=== PATIENT | female | born 1950 | race Caucasian/White ===

== ENCOUNTER 2017-10-21 19:36 | Emergency (ER) | payer SELFPAY, OTHER | END 2017-10-22 01:26 | disposition left against medical advice (07) | LOC: E/R 19:36 | DX: Z53.21 Procedure and treatment not carried out due to patient leaving prior to being seen by health care provider (principal) ==

== ENCOUNTER 2017-10-22 05:20 | Inpatient (IN) | payer OTHER ==
[2017-10-22] MEDS ORDERED: morphine 2 MG INJ IV (06:00)
[2017-10-22] MEDS ORDERED: ONDANSETRON 4 MG INJ IV (06:00)
[2017-10-22] MEDS ORDERED: NACL 0.9% 3 ML SYG IV (07:00)
[2017-10-22] MEDS ORDERED: hydrALAzine 20 MG INJ IV (07:00)
[2017-10-22] MEDS: DEXTROSE 5%-0.45% NACL 1,000 ML IV ×2 (07:04→18:37)
[2017-10-22] MEDS: FAMOTIDINE 20 MG INJ IV ×2 (08:18→20:15)
[2017-10-22 08:33] LABS: ADD MAN DIFF? NO
[2017-10-22 08:37] LABS: WHITE BLOOD COUNT 14.1 10^3/ul (4.8-10.8)
[2017-10-22 08:37] LABS: BASOPHILS % 0.1 % (0.0-2.0); EOSINOPHILS % 0.1 % (0.0-7.0); HEMATOCRIT 38.1 % (37.0-47.0); HEMOGLOBIN 12.5 g/dl (12.0-16.0); LYMPHOCYTES # 0.9 10^3/ul (0.8-2.9); LYMPHOCYTES % 6.6 % (15.0-51.0); MEAN CORPUSCULAR HEMOGLOBIN 29.2 pg (29.0-33.0); MEAN CORPUSCULAR HGB CONC 32.8 g/dl (32.0-37.0); MEAN PLATELET VOLUME 11.5 fl (7.4-10.4); MONOCYTE # 0.9 10^3/ul (0.3-0.9); MONOCYTES % 6.4 % (0.0-11.0); NEUTROPHIL # 12.2 10^3/ul (1.6-7.5); NEUTROPHILS % 86.5 % (39.0-77.0); PLATELET COUNT 242 10^3/UL (140-415); RED BLOOD COUNT 4.28 10^6/ul (4.20-5.40); RED CELL DISTRIBUTION WIDTH 13.8 % (11.5-14.5)
[2017-10-22 08:56] LABS: ALANINE AMINOTRANSFERASE 28 IU/L (13-69); ALBUMIN 4.1 g/dl (3.3-4.9); ALBUMIN/GLOBULIN RATIO 1.24; ALKALINE PHOSPHATASE 71 IU/L (42-121); ANION GAP 16 (8-16); ASPARTATE AMINO TRANSFERASE 20 IU/L (15-46); BILIRUBIN,INDIRECT 0.4 mg/dl (0-1.1); BILIRUBIN,TOTAL 0.4 mg/dl (0.2-1.3); BLOOD UREA NITROGEN 16 mg/dl (7-20); CARBON DIOXIDE 30 mmol/L (21-31); CHLORIDE 101 mmol/L (97-110); CREATININE 0.57 mg/dl (0.44-1.00); GLUCOSE 126 mg/dl (70-220); MAGNESIUM 1.8 mg/dl (1.7-2.5); PHOSPHORUS 3.7 mg/dl (2.5-4.9); SODIUM 143 mmol/L (135-144); TOTAL PROTEIN 7.4 g/dl (6.1-8.1)
[2017-10-23] MEDS: DEXTROSE 5%-0.45% NACL 1,000 ML IV ×2 (02:00→05:30)
[2017-10-23 05:15] LABS: ADD MAN DIFF? NO
[2017-10-23 05:16] LABS: WHITE BLOOD COUNT 7.5 10^3/ul (4.8-10.8)
[2017-10-23 05:16] LABS: BASOPHILS % 0.4 % (0.0-2.0); EOSINOPHILS # 0.2 10^3/ul (0.0-0.5); EOSINOPHILS % 3.2 % (0.0-7.0); HEMATOCRIT 32.1 % (37.0-47.0); HEMOGLOBIN 10.6 g/dl (12.0-16.0); LYMPHOCYTES # 1.2 10^3/ul (0.8-2.9); LYMPHOCYTES % 15.6 % (15.0-51.0); MEAN CORPUSCULAR VOLUME 87.7 fl (82.0-101.0); MEAN PLATELET VOLUME 11.2 fl (7.4-10.4); MONOCYTE # 0.7 10^3/ul (0.3-0.9); MONOCYTES % 8.7 % (0.0-11.0); NEUTROPHIL # 5.3 10^3/ul (1.6-7.5); NEUTROPHILS % 71.7 % (39.0-77.0); PLATELET COUNT 204 10^3/UL (140-415); RED BLOOD COUNT 3.66 10^6/ul (4.20-5.40); RED CELL DISTRIBUTION WIDTH 14.3 % (11.5-14.5)
[2017-10-23 05:42] LABS: ANION GAP 15 (8-16); BLOOD UREA NITROGEN 14 mg/dl (7-20); CALCIUM 8.5 mg/dl (8.4-10.2); CARBON DIOXIDE 27 mmol/L (21-31); CHLORIDE 102 mmol/L (97-110); CREATININE 0.68 mg/dl (0.44-1.00); GLUCOSE 141 mg/dl (70-220); MAGNESIUM 1.9 mg/dl (1.7-2.5); PHOSPHORUS 3.1 mg/dl (2.5-4.9); POTASSIUM 3.5 mmol/L (3.5-5.1); SODIUM 140 mmol/L (135-144)
[2017-10-23] MEDS ORDERED: BUPIVACAINE 0.25% (MPF) 30 ML INJ (06:49)
[2017-10-23] MEDS: BUPIVACAINE 0.25% (STERILE-PAK) 30 ML INJ INJ (06:56)
[2017-10-23] MEDS: BUPIVACAINE 0.25%/EPI (SDV) 30 ML INJ INJ (06:56)
[2017-10-23] MEDS ORDERED: EPHEDrine SULFATE 50 MG/5 ML SYG (07:00)
[2017-10-23] MEDS ORDERED: CEFAZOLIN 1 GM INJ (07:00)
[2017-10-23] MEDS ORDERED: SUCCINYLCHOLINE CHLORIDE 100 MG/5 ML SYG IV (07:00)
[2017-10-23] MEDS ORDERED: ROCURONIUM 50 MG INJ (07:21)
[2017-10-23] MEDS ORDERED: FENTAnyl 50 MCG/ML VIAL ×2 (07:21→08:56)
[2017-10-23] MEDS ORDERED: PROPOFOL 20 ML (07:21)
[2017-10-23] MEDS ORDERED: MIDAZOLAM 1 MG/ML 2 ML INJ (07:21)
[2017-10-23] MEDS ORDERED: LIDOCAINE 1% (MDV) 20 ML INJ (07:22)
[2017-10-23] MEDS ORDERED: DEXAMETHASONE 4 MG/ML 1 ML INJ (07:22)
[2017-10-23] MEDS ORDERED: METOCLOPRAMIDE 10 MG INJ (07:25)
[2017-10-23] MEDS ORDERED: FAMOTIDINE 20 MG INJ (07:50)
[2017-10-23] MEDS ORDERED: LIDOCAINE 1%/EPI 30 ML INJ (07:52)
[2017-10-23] MEDS ORDERED: ACETAMINOPHEN 1000MG/100ML IV 100 ML (08:16)
[2017-10-23] MEDS ORDERED: SUGAMMADEX SODIUM 200 MG/2 ML VIAL IV (08:35)
[2017-10-23] MEDS ORDERED: HYDROCODONE/APAP (5/325) TAB PO (09:30)
[2017-10-23] MEDS ORDERED: DOCUSATE SODIUM 100 MG CAP PO (09:30)
[2017-10-23] MEDS ORDERED: BISACODYL 10 MG SUPP PR (09:30)
[2017-10-23] MEDS ORDERED: NA PHOSPHATE/BIPHOS 133 ML ENEMA PR (09:30)
[2017-10-23] MEDS: ONDANSETRON 4 MG INJ IV ×2 (10:03→18:13)
[2017-10-23] MEDS: HYDROmorphONE 0.5 MG/0.5 ML SYG IV ×2 (11:40→15:59)
[2017-10-23] MEDS: HYDROCODONE/APAP (5/325) TAB PO (13:17)
[2017-10-24 05:51] LABS: ADD MAN DIFF? NO
[2017-10-24 05:56] LABS: BASOPHILS % 0.1 % (0.0-2.0); EOSINOPHILS % 0.1 % (0.0-7.0); HEMOGLOBIN 11.5 g/dl (12.0-16.0); LYMPHOCYTES % 10.2 % (15.0-51.0); MEAN CORPUSCULAR HEMOGLOBIN 29.1 pg (29.0-33.0); MEAN CORPUSCULAR HGB CONC 32.9 g/dl (32.0-37.0); MEAN CORPUSCULAR VOLUME 88.6 fl (82.0-101.0); MEAN PLATELET VOLUME 11.5 fl (7.4-10.4); MONOCYTE # 0.5 10^3/ul (0.3-0.9); MONOCYTES % 5.2 % (0.0-11.0); NEUTROPHIL # 8.6 10^3/ul (1.6-7.5); PLATELET COUNT 240 10^3/UL (140-415); RED BLOOD COUNT 3.95 10^6/ul (4.20-5.40); RED CELL DISTRIBUTION WIDTH 13.7 % (11.5-14.5)
[2017-10-24 05:56] LABS: WHITE BLOOD COUNT 10.2 10^3/ul (4.8-10.8)
[2017-10-24 06:30] LABS: LIPASE 56 U/L (23-300)
[2017-10-24 06:38] LABS: ALANINE AMINOTRANSFERASE 67 IU/L (13-69); ALBUMIN/GLOBULIN RATIO 1.29; ALKALINE PHOSPHATASE 69 IU/L (42-121); ANION GAP 15 (8-16); ASPARTATE AMINO TRANSFERASE 72 IU/L (15-46); BILIRUBIN,INDIRECT 0.3 mg/dl (0-1.1); BILIRUBIN,TOTAL 0.3 mg/dl (0.2-1.3); BLOOD UREA NITROGEN 14 mg/dl (7-20); CALCIUM 8.9 mg/dl (8.4-10.2); CARBON DIOXIDE 28 mmol/L (21-31); CHLORIDE 104 mmol/L (97-110); CREATININE 0.68 mg/dl (0.44-1.00); GLUCOSE 104 mg/dl (70-220); POTASSIUM 3.8 mmol/L (3.5-5.1); SODIUM 143 mmol/L (135-144); TOTAL PROTEIN 7.1 g/dl (6.1-8.1)
[2017-10-24] MEDS: HYDROCODONE/APAP (5/325) TAB PO (08:44)
[2017-10-24] MEDS: FAMOTIDINE 20 MG INJ IV (08:44)
[2017-10-24] MEDS: ENOXAPARIN 40 MG/0.4 ML SYG SC (08:45)
[2017-10-25] MEDS ORDERED: DOCUSATE SODIUM 100 MG CAP PO (09:00)
== END 2017-10-24 13:39 | disposition home or self-care (01) | DRG 419 ==
LOC: MS1 05:20
PROC: 0FT44ZZ Resection of Gallbladder, Percutaneous Endoscopic Approach (ICD-10-PCS; principal; 2017-10-23 07:30)
DX: K80.00 Calculus of gallbladder with acute cholecystitis without obstruction (principal); I11.9 Hypertensive heart disease without heart failure; K76.0 Fatty (change of) liver, not elsewhere classified; J45.909 Unspecified asthma, uncomplicated; Z98.890 Other specified postprocedural states
CPT/HCPCS: 74181; 76705; 80048; 80053; 83036; 83690; 83735; 84100; 85025; 88304

== ENCOUNTER 2017-11-14 09:33 | Outpatient (CLI) | payer OTHER | END 2017-11-14 15:47 | disposition home or self-care (01) | LOC: HPC 09:33 | DX: K80.10 Calculus of gallbladder with chronic cholecystitis without obstruction (principal); I10 Essential (primary) hypertension; J45.909 Unspecified asthma, uncomplicated; I51.7 Cardiomegaly; Z88.0 Allergy status to penicillin | CPT/HCPCS: Z7500 ==

== ENCOUNTER 2019-01-23 14:22 | Inpatient (IN) | payer OTHER ==
[2019-01-23 15:24] LABS: ADD MAN DIFF? NO
[2019-01-23 15:26] LABS: BASOPHILS % 0.5 % (0.0-2.0); EOSINOPHILS # 0.1 10^3/ul (0.0-0.5); EOSINOPHILS % 2.3 % (0.0-7.0); HEMATOCRIT 35.3 % (37.0-47.0); HEMOGLOBIN 11.4 g/dl (12.0-16.0); LYMPHOCYTES # 1.4 10^3/ul (0.8-2.9); LYMPHOCYTES % 22.6 % (15.0-51.0); MEAN CORPUSCULAR HEMOGLOBIN 28.4 pg (29.0-33.0); MEAN CORPUSCULAR HGB CONC 32.3 g/dl (32.0-37.0); MEAN CORPUSCULAR VOLUME 87.8 fl (82.0-101.0); MEAN PLATELET VOLUME 11.7 fl (7.4-10.4); MONOCYTE # 0.5 10^3/ul (0.3-0.9); MONOCYTES % 8.5 % (0.0-11.0); NEUTROPHIL # 3.9 10^3/ul (1.6-7.5); NEUTROPHILS % 65.8 % (39.0-77.0); PLATELET COUNT 226 10^3/UL (140-415); RED BLOOD COUNT 4.02 10^6/ul (4.20-5.40); RED CELL DISTRIBUTION WIDTH 13.4 % (11.5-14.5)
[2019-01-23] MEDS: ONDANSETRON 4 MG INJ IV (15:26)
[2019-01-23] MEDS: SOD CHLORIDE 0.9% 500 ML IV (15:27)
[2019-01-23] MEDS: morphine 4 MG/ML VIAL IV (15:27)
[2019-01-23] MEDS: ASPIRIN 325 MG TAB PO (15:27)
[2019-01-23] MEDS: NITROGLYCERIN 2% 1 GM OINT PKT TD (15:27)
[2019-01-23 15:37] LABS: ANION GAP 8 (5-13); BLOOD UREA NITROGEN 20 mg/dl (7-20); CALCIUM 8.9 mg/dl (8.4-10.2); CARBON DIOXIDE 27 mmol/L (21-31); CHLORIDE 102 mmol/L (97-110); CREATININE 0.69 mg/dl (0.44-1.00); Estimated GFR > 60 mL/min (>60); GLUCOSE 107 mg/dl (70-220); POTASSIUM 4.1 mmol/L (3.5-5.1); SODIUM 137 mmol/L (135-144)
[2019-01-23 15:49] LABS: TROPONIN-I < 0.012 ng/ml (0.000-0.120)
[2019-01-23 16:20] LABS: INR 0.92; PARTIAL THROMBOPLASTIN TIME 25.1 Sec (23.0-35.0); PROTIME 12.5 Sec (11.9-14.9)
[2019-01-23 16:23] LABS: D-DIMER 1064.76 ng/ml (<460)
[2019-01-23] MEDS: SOD CHLORIDE 0.9% 100 ML (18:32)
[2019-01-23] MEDS: IOHEXOL 100 ML (18:32)
[2019-01-23] MEDS ORDERED: ONDANSETRON 4 MG INJ IV ×2 (19:00→20:30)
[2019-01-23] MEDS ORDERED: NITROGLYCERIN (SL) 0.4 MG TAB SL (20:30)
[2019-01-23] MEDS ORDERED: BISACODYL (EC) 5 MG TAB PO (20:30)
[2019-01-23] MEDS ORDERED: DOCUSATE SODIUM 100 MG CAP PO (20:30)
[2019-01-23] MEDS ORDERED: NACL 0.9% 3 ML SYG IV (20:30)
[2019-01-23 22:19] LABS: CREATINE KINASE 60 IU/L (23-200)
[2019-01-23 22:33] LABS: CK INDEX 1.6; CK-MB 0.96 ng/ml (0.0-2.4); TROPONIN-I < 0.012 ng/ml (0.000-0.120)
[2019-01-24 03:31] LABS: ADD MAN DIFF? NO
[2019-01-24 03:33] LABS: BASOPHILS % 0.6 % (0.0-2.0); EOSINOPHILS # 0.2 10^3/ul (0.0-0.5); EOSINOPHILS % 4.5 % (0.0-7.0); HEMATOCRIT 36.1 % (37.0-47.0); HEMOGLOBIN 11.6 g/dl (12.0-16.0); LYMPHOCYTES # 1.2 10^3/ul (0.8-2.9); LYMPHOCYTES % 24.9 % (15.0-51.0); MEAN CORPUSCULAR HEMOGLOBIN 28.4 pg (29.0-33.0); MEAN CORPUSCULAR HGB CONC 32.1 g/dl (32.0-37.0); MEAN CORPUSCULAR VOLUME 88.3 fl (82.0-101.0); MEAN PLATELET VOLUME 11.3 fl (7.4-10.4); MONOCYTE # 0.5 10^3/ul (0.3-0.9); MONOCYTES % 9.5 % (0.0-11.0); NEUTROPHIL # 2.9 10^3/ul (1.6-7.5); NEUTROPHILS % 60.1 % (39.0-77.0); PLATELET COUNT 219 10^3/UL (140-415); RED BLOOD COUNT 4.09 10^6/ul (4.20-5.40); RED CELL DISTRIBUTION WIDTH 13.3 % (11.5-14.5)
[2019-01-24 03:33] LABS: WHITE BLOOD COUNT 4.9 10^3/ul (4.8-10.8)
[2019-01-24 03:51] LABS: HEMOGLOBIN A1C 5.9 % (0-5.9)
[2019-01-24 03:53] LABS: ALANINE AMINOTRANSFERASE 18 IU/L (13-69); ALBUMIN 3.9 g/dl (3.3-4.9); ALBUMIN/GLOBULIN RATIO 1.39; ALKALINE PHOSPHATASE 69 IU/L (42-121); ANION GAP 7 (5-13); ASPARTATE AMINO TRANSFERASE 22 IU/L (15-46); BILIRUBIN,INDIRECT 0.4 mg/dl (0-1.1); BILIRUBIN,TOTAL 0.4 mg/dl (0.2-1.3); BLOOD UREA NITROGEN 16 mg/dl (7-20); CALCIUM 9.2 mg/dl (8.4-10.2); CARBON DIOXIDE 31 mmol/L (21-31); CHLORIDE 105 mmol/L (97-110); CHOL/HDL RATIO 4.2 RATIO; CHOLESTEROL 169 mg/dl (100-200); CREATINE KINASE 47 IU/L (23-200); CREATININE 0.71 mg/dl (0.44-1.00); Estimated GFR > 60 mL/min (>60); GLUCOSE 108 mg/dl (70-220); HDL CHOLESTEROL 40 mg/dl (35-98); LDL CHOLESTEROL,CALCULATED 84 mg/dl; MAGNESIUM 2.1 mg/dl (1.7-2.5); POTASSIUM 3.9 mmol/L (3.5-5.1); SODIUM 143 mmol/L (135-144); TOTAL PROTEIN 6.7 g/dl (6.1-8.1); TRIGLYCERIDES 225 mg/dl (0-149)
[2019-01-24 04:03] LABS: CK INDEX 2.1; CK-MB 1.01 ng/ml (0.0-2.4); TROPONIN-I < 0.012 ng/ml (0.000-0.120)
[2019-01-24] MEDS: ACETAMINOPHEN 325 MG TAB PO ×2 (06:18→23:24)
[2019-01-24] MEDS: ENOXAPARIN 80 MG/0.8 ML SYG SC (06:24)
[2019-01-24 20:21] LABS: FREE T3 4.12 pg/ml (2.77-5.27); FREE T4 (FREE THYROXINE) 0.85 ng/dl (0.78-2.44)
[2019-01-24 21:31] LABS: FREE THYROXINE INDEX (Calc) 2.14 ug/ml (0.65-3.89); T3 UPTAKE 28.1 % (23.5-40.5); T4 (THYROXINE) 7.6 ug/dl (5.5-11.0)
[2019-01-25] MEDS: REGADENOSON 0.4 MG/5 ML SYG (09:31)
[2019-01-25] MEDS: ACETAMINOPHEN 325 MG TAB PO (10:19)
[2019-01-25] MEDS: ENOXAPARIN 40 MG/0.4 ML SYG SC (11:27)
== END 2019-01-25 15:22 | disposition home or self-care (01) | DRG 311 ==
LOC: TEL 18:53 → E/R 14:22 → TEL 01-24 02:18
DX: I24.9 Acute ischemic heart disease, unspecified (principal); R79.1 Abnormal coagulation profile; I10 Essential (primary) hypertension; J45.909 Unspecified asthma, uncomplicated; E07.81 Sick-euthyroid syndrome; Z88.0 Allergy status to penicillin
CPT/HCPCS: 36415; 71045; 78452; 78582; 80048; 80053; 80061; 82550; 82553; 83036; 83735; 84436; 84439; 84443; 84479; 84481; 84484; 85025; 85378; 85610; 85730; 93005; 93017; 93306; 93970; 96374; 96375; 99285-25; G0378